=== PATIENT | male | born 1945 | race Caucasian/White ===

== ENCOUNTER → 2019-05-25 | Outpatient (CLI) | payer MEDICARE, OTHER ==
--- NOTE | 2019-05-25 22:07 | CONS ---
CONSULTATION DATE OF SERVICE: 05/25/2019 This 74-year-old gentleman has been evaluated in the Sleep Center for possible obstructive sleep apnea-hypopnea syndrome. HISTORY OF PRESENT ILLNESS/SLEEP-WAKE EVALUATION: The patient had a sleep study in 1993 which showed obstructive sleep apnea-hypopnea syndrome. After that he underwent UPPP and tonsillectomy, which was done by Dr. Brandt, and at that time he improved. His symptoms of snoring significantly decreased and he started to sleep better. Presently after about 25 years, he again developed more problems with snoring and awakenings from sleep. His sleep schedule is from 11 p.m. until around 7 a.m. Usually no problems with falling asleep. No TV in bedroom. He snores, according to his , and he wakes up from sleep three times with nocturia. In the morning he wakes up tired and he may take one nap during the day. After the nap he usually feels refreshed. No history of hypnagogic hallucinations, sleep paralysis, or cataplexy. [place] Sleepiness scale is 7. PAST MEDICAL HISTORY: Positive for hypertension, hyperlipidemia. PAST SURGICAL HISTORY: 1. UPPP. 2. Tonsillectomy. 3. Appendectomy. 4. Hernia repair. MEDICATIONS: 1. Lipitor. 2. Meclizine. 3. Benicar. 4. Vitamin D supplement. 5. . SOCIAL HISTORY: Negative for smoking. Alcohol occasional. FAMILY HISTORY: Emphysema, sleep apnea, snoring, cancer. REVIEW OF SYSTEMS: Snoring, awakenings from sleep with nocturia. PHYSICAL EXAMINATION: GENERAL: A pleasant gentleman without distress. VITAL SIGNS: BP 140/77, HR 71, RR 16, height 5 feet 9 inches, weight 212.8, body mass index 32.2, temperature 97.8, oxygen saturation on room air 95%. HEENT: PERRLA, EOMI. Evaluation of oropharynx showed tongue protrudes in midline. Low position of soft palate, Mallampati IV. No uvula. Restriction of nasal breathing. NECK: Supple. No JVD. Thyroid is not palpable. Wide neck; 18 inches in circumference. LUNGS: Clear to percussion and to auscultation. Good air exchange. No wheezing or rhonchi. HEART: S1, S2 regular. No murmurs, gallops, or rubs. ABDOMEN: Soft and nontender. Bowel sounds are present. No organomegaly appreciated. EXTREMITIES: No clubbing or cyanosis. BICYCLE DESIGNER: Awake, alert, and oriented X3. Cranial nerves 2 to 7 intact. There is no fasciculation or atrophy. noted. No focal deficits observed. IMPRESSION: 1. Obstructive sleep apnea-hypopnea syndrome diagnosed about 25 years ago. Presently the patient has loud snoring, multiple awakenings from sleep with nocturia, low position of soft palate, restriction of nasal breathing, wide neck: obstructive sleep apnea-hypopnea syndrome. 2. Status post uvulopalatopharyngoplasty and tonsillectomy 25 years ago. 3. History of hypertension. 4. Hyperlipidemia. 5. Status post appendectomy. 6. Status post hernia repair. PLAN: 1. Polysomnography for evaluation of patient's breathing during sleep. 2. CPAP/BiPAP titration if sleep study confirms obstructive sleep apnea-hypopnea syndrome. 3. Preferable position during sleep on the side. 4. No driving if patient feels any sleepiness. 5. I will see patient for follow-up visit to explain results of testing and following plan. Thank you very much for referring this patient for consultation. Sincerely, Saeid Arauz MD, PhD, FAASMB Diplomat of [place] Board of Medical Specialties F[place] Board of Internal Medicine Truck Hop of [facility] [place] MMDEANL / [place]: [id number] /
== END ==
LOC: SLEEP 14:37
PROVIDERS: ATTEND Internal Medicine
DX: I10 Essential (primary) hypertension (principal); E78.5 Hyperlipidemia, unspecified; Z90.49 Acquired absence of other specified parts of digestive tract; G47.33 Obstructive sleep apnea (adult) (pediatric); Z98.890 Other specified postprocedural states; Z79.899 Other long term (current) drug therapy
CPT/HCPCS: 99211

== ENCOUNTER → 2020-06-06 | Outpatient (CLI) | payer OTHER ==
--- NOTE | 2020-06-06 14:28 | SFUN ---
SLEEP CENTER FOLLOW UP NOTE DATE OF SERVICE: 06/06/2020 A 75-year-old gentleman who has been followed in the Sleep Center for treatment of obstructive sleep apnea-hypopnea syndrome. Recently, patient had a polysomnogram which showed obstructive sleep apnea and then patient had CPAP titration and subsequently he received his CPAP unit. Today is his first visit after he was started on treatment with CPAP. According to the patient, he feels better. His sleep is better and he feels better during the day. He is satisfied with his mask. He does not snore. At the same time, patient may feel some discomfort with his sinuses in the morning. [place] Sleepiness Scale today is 5. I checked patient CPAP unit, CPAP pressure is 6 cm of water. Usage is 30/30 nights. Average usage is 7.3 hours per night. Leak is 17 L/minute. Apnea-hypopnea index is 1.9, which is totally normal. MEDICATIONS: Lipitor, meclizine, Benicar, vitamin D3, fluticasone. PHYSICAL EXAM: Patient in no distress, BP 119/82, HR 80, RR 16, weight 209, temp 97.1. Oxygen saturation at room air 96%. OROPHARYNX: Extremely low position of soft palate. Mallampati 4. ABDOMEN: Obese. NECK: Supple, no JVD. Thyroid is not palpable. LUNGS: Clear to percussion and to auscultation. Good air exchange. No wheezing or rhonchi. HEART: S1, S2 regular. No murmurs, gallops, or rubs. EXTREMITIES: No clubbing or cyanosis. IS PROJECT MANAGER: Awake, alert, and oriented X3. Cranial nerves 2 to 7 intact. There is no fasciculation or atrophy. noted. No focal deficits observed. IMPRESSION: 1. Obstructive sleep apnea-hypopnea syndrome. Patient demonstrated great compliance with treatment, benefitting from treatment. 2. Hypertension. 3. Hyperlipidemia. 4. Status post UPPP and tonsillectomy 25 years ago. 5. Status post appendectomy. 6. Status post hernia repair. PLAN: 1. I reviewed the results of CPAP titration and decreased pressure of CPAP unit down to 4.6 cm of water. 2. Sleep hygiene with regular time in bed for at least 7-1/2 to 8 hours. 3. Precautions related to driving. No driving if feeling sleepiness. 4. I will maintain all necessary prescription for PAP supplies including mask, tube, filters. 5. Watching weight. 6. No driving if feeling sleepiness. 7. Follow-up visit in 3 months or earlier if patient has any problems. Thank you very much for allowing me to participate in the management of your patient. Sincerely, Saeid Arauz MD, PhD, FAASM Diplomat of [employer]ol[employer] Board of Medical Specialties Congolese Board of Internal Medicine Precision Instrument Maker And Repairer of [facility] [place] MMODL / [place]: [id number] /
== END | disposition home or self-care (01) ==
LOC: SLEEP 09:50
PROVIDERS: ATTEND Internal Medicine
DX: G47.33 Obstructive sleep apnea (adult) (pediatric) (principal); I10 Essential (primary) hypertension; E78.5 Hyperlipidemia, unspecified; Z99.89 Dependence on other enabling machines and devices; Z90.49 Acquired absence of other specified parts of digestive tract; Z98.890 Other specified postprocedural states

== ENCOUNTER → 2020-10-31 | Outpatient (CLI) | payer MEDICARE, OTHER ==
--- NOTE | 2020-10-31 15:58 | SFUN ---
SLEEP CENTER FOLLOW UP NOTE DATE OF SERVICE: 10/31/2020 This 75-year-old gentleman has been followed in Sleep Center for treatment of obstructive sleep apnea/hypopnea syndrome. During his previous visit, which was in June 2020, because of some feeling of discomfort in the sinuses, I decreased the pressure to 4.6 cm of water. The patient continues to use his machine every night for the whole night. He just returned from [place]. In [place] in September he was diagnosed with COVID-19; his symptoms were mostly only headaches at that time. He still has a slight headache in the morning now. [place] Sleepiness Scale is 9. I checked his CPAP unit. CPAP pressure is 4.6 cm of water, which is really minimal pressure. Usage is 30/30 nights for more than 4 hours; very good compliance. Leak is 11 L/minute, which is in normal range. Apnea-hypopnea index is only 1.4, which is absolutely perfect. MEDICATIONS: 1. Lipitor 20 mg once a day. 2. Meclizine 12.5 mg on p.r.n. basis. 3. Benicar 20 mg once a day. 4. Multivitamins. 5. Fluticasone spray. 6. Vitamin D3 once a day. PHYSICAL EXAMINATION: GENERAL: A pleasant patient in no distress. VITAL SIGNS: BP 118/78, HR 70, RR 18, height 5 feet 8 inches, weight 213.2, temperature 97.9, oxygen saturation at room air 95%. HEENT: PERRLA, EOMI. Evaluation of oropharynx showed tongue protrudes midline. Extremely low position of soft palate. Mallampati IV. NECK: Supple. No JVD. Thyroid is not palpable. LUNGS: Clear to percussion and to auscultation. Good air exchange. No wheezing or rhonchi. HEART: S1, S2 regular. No murmurs, gallops or rubs. ABDOMEN: Soft and nontender. Bowel sounds are present. No organomegaly appreciated. EXTREMITIES: No clubbing or cyanosis. PICKING CREW SUPERVISOR: Awake, alert, and oriented X3. Cranial nerves 2 to 7 intact. There is no fasciculation or atrophy. noted. No focal deficits observed. IMPRESSION: 1. Obstructive sleep apnea-hypopnea syndrome. Patient demonstrated 100% compliance with treatment, benefitting from treatment. Normal apnea-hypopnea index with very low CPAP pressure of 4.6 cm of water. 2. Episodes of possibly sinus headaches even after pressure was decreased significantly. 3. Status post COVID-19 in September of 2020 with possibly post-COVID neurological symptoms. 4. Mild obesity; body mass index 32.3. 5. Hyperlipidemia. 6. Status post UPPP. 7. Status post appendectomy. 8. Status post hernia repair. PLAN: 1. I referred the patient for evaluation by Ear, Nose and Throat physician because of possible sinus problems. 2. Patient will continue to use CPAP equipment every night for the whole night. 3. I asked the patient to do several nights without CPAP to check if his symptoms change, although, as I described above, pressure in his CPAP unit at the present time is in very low range of only 4.6 cm of water. 4. Watching and losing weight. 5. No driving if feeling sleepiness. 6. Follow-up visit in 3-4 months. Thank you very much for allowing me to participate in the management of your patient. Sincerely, Saeid Arauz MD, PhD, FAASM Diplomat of [employer] Board of Medical Specialties Nigerian Board of Internal Medicine Port Engineer of [facility] [place] MMODL / IJN: [id number] /
== END ==
LOC: SLEEP 11:35
PROVIDERS: ATTEND Internal Medicine
DX: G47.33 Obstructive sleep apnea (adult) (pediatric) (principal); E66.9 Obesity, unspecified; E78.5 Hyperlipidemia, unspecified; Z68.32 Body mass index [BMI] 32.0-32.9, adult; Z86.16 Personal history of COVID-19; Z98.890 Other specified postprocedural states; Z90.49 Acquired absence of other specified parts of digestive tract; Z90.89 Acquired absence of other organs; Z79.899 Other long term (current) drug therapy

== ENCOUNTER → 2021-02-20 | Outpatient (CLI) | payer MEDICARE, OTHER ==
--- NOTE | 2021-02-20 22:29 | SFUN ---
SLEEP CENTER FOLLOW UP NOTE DATE OF SERVICE: 02/20/2021 This 75-year-old gentleman has been followed in Sleep Center for treatment of obstructive sleep apnea-hypopnea syndrome. The patient continues to use his CPAP equipment every night. During his previous visit he had episodes of headaches and sinus discomfort, but the pressure in the machine was in very low range. I referred the patient to Ear, Nose and Throat physician to check up. He was checked. CT scan, according to the patient, did not show significant abnormalities, and now no headaches or sinus issues. The patient had COVID in September of 2020 and he had headaches at that time. About 2 months after that, the headaches practically disappeared; they were possibly secondary to COVID-19. I checked his CPAP unit. Pressure is 4.6 cm of water, which is in very low range. Usage is 100% of nights, average 7.2 hours per night. Leak is 11 L/minute, which is normal. Apnea-hypopnea index is 3.7, which is in acceptable range. [place] Sleepiness Scale today is 7. MEDICATIONS: 1. Lipitor 20 mg once a day. 2. Meclizine 12.5 mg as needed. 3. Benicar 20 mg once a day. 4. Fluticasone 50 mcg spray nightly. 5. Multivitamins. 6. Vitamin D3 supplement. PHYSICAL EXAMINATION: GENERAL: Pleasant patient in no distress. VITAL SIGNS: BP 140/97, HR 76, RR 15, height 5 feet 8 inches, weight 205, body mass index 31.1, temperature 97.6, oxygen saturation at room air 97%. HEENT: PERRLA, EOMI, evaluation of oropharynx showed tongue protrudes midline. Extremely low position of soft palate. Mallampati IV. NECK: Supple, no JVD. Thyroid is not palpable. LUNGS: Clear to percussion and to auscultation. Good air exchange. No wheezing or rhonchi. HEART: S1, S2 regular. No murmurs, gallops, or rubs. ABDOMEN: Soft and nontender. Bowel sounds are present. No organomegaly appreciated. EXTREMITIES: No clubbing or cyanosis. SPREADER OPERATOR AUTOMATIC: Awake, alert, and oriented X3. Cranial nerves 2 to 7 intact. There is no fasciculation or atrophy. noted. No focal deficits observed. IMPRESSION: 1. Obstructive sleep apnea-hypopnea syndrome. Patient demonstrated great compliance with treatment, benefitting from treatment. 2. Mild obesity. BMI 31.1. 3. Status post COVID-19 in September of 2020. 4. Hypertension. 5. Hyperlipidemia. 6. Status post UPPP and tonsillectomy 25 years ago. 7. Status post appendectomy. 8. Status post hernia repair. 9. Status post left knee arthroplasty in January of 2021. PLAN: 1. Patient will continue to use PAP equipment every night for the whole night. 2. Sleep hygiene with regular time in bed for at least 7-1/2 to 8 hours. 3. Precautions related to driving. No driving if feeling sleepiness. 4. I will maintain all necessary prescription for PAP supplies including mask, tube, filters. 5. Watching weight. 6. Follow-up visit in 6 months or earlier if patient has any problems. Thank you very much for allowing me to participate in the management of your patient. Sincerely, Saeid Arauz MD, PhD, FAASM Diplomat of [place] Board of Medical Specialties Sleep Medicine Board of [place] Board of Internal Medicine Property Inspector of [facility] [place] MMODL / [place]: [id number] /
== END ==
LOC: SLEEP 14:51
PROVIDERS: ATTEND Internal Medicine
DX: G47.33 Obstructive sleep apnea (adult) (pediatric) (principal); E66.9 Obesity, unspecified; I10 Essential (primary) hypertension; E78.5 Hyperlipidemia, unspecified; Z90.09 Acquired absence of other part of head and neck; Z68.31 Body mass index [BMI] 31.0-31.9, adult; Z99.89 Dependence on other enabling machines and devices; Z79.899 Other long term (current) drug therapy; Z90.49 Acquired absence of other specified parts of digestive tract; Z98.890 Other specified postprocedural states; Z96.652 Presence of left artificial knee joint; Z86.16 Personal history of COVID-19

== ENCOUNTER → 2021-10-29 | Outpatient (CLI) | payer MEDICARE, OTHER ==
--- NOTE | 2021-10-29 19:55 | SFUN ---
SLEEP CENTER FOLLOW UP NOTE DATE OF SERVICE: 10/29/2021 This 76-year-old gentleman has been followed in Sleep Center for treatment of obstructive sleep apnea-hypopnea syndrome. The patient continues to use his CPAP equipment every night. He developed some problems with irritation of his nose from the mask in internal part of the nose. He is using a nasal pillow mask. [place] Sleepiness Scale today is 7, which is normal. I checked his CPAP unit. Pressure is 4.6 cm of water. Usage 29/30 nights more than 4 hours, average 7.4 hours per night, which is good compliance. Leak is 12 L/minute, which is normal range. Apnea-hypopnea index is 2.0, which is normal; better than during the previous visit. MEDICATIONS: 1. Lipitor 20 mg once a day. 2. Pantoprazole 40 mg twice a day. 3. Meclizine 12.5 mg as needed. 4. Benicar 20 mg once a day. 5. Multivitamins. PHYSICAL EXAMINATION: GENERAL: Pleasant patient in no distress. VITAL SIGNS: BP 130/82, HR 66, RR 16, temperature 97.1. HEENT: PERRLA, EOMI, evaluation of oropharynx showed tongue protrudes midline. Extremely low position of soft palate; Mallampati IV. Irritation inside of left nostril. NECK: Supple, no JVD. Thyroid is not palpable. LUNGS: Clear to percussion and to auscultation. Good air exchange. No wheezing or rhonchi. HEART: S1, S2 regular. No murmurs, gallops, or rubs. ABDOMEN: Soft and nontender. Bowel sounds are present. No organomegaly appreciated. EXTREMITIES: No clubbing or cyanosis. DYNAMICS AX DEVELOPER: Awake, alert, and oriented X3. Cranial nerves 2 to 7 intact. There is no fasciculation or atrophy. noted. No focal deficits observed. IMPRESSION: 1. Obstructive sleep apnea-hypopnea syndrome. Patient demonstrated great compliance with treatment. Normal respiration on CPAP. 2. Some irritation from nasal pillow mask inside of the nostril. 3. Mild obesity. 4. Status post COVID-19 in September 2020. 5. Hypertension. 6. Hyperlipidemia. 7. Status post uvulopalatopharyngoplasty and tonsillectomy 25 years ago. 8. Status post appendectomy. 9. Status post hernia repair. 10.Status post left knee arthroplasty in January of 2021. PLAN: 1. We provided the patient with a nasal mask which does not have any part which goes inside of the nose. 2. Patient will continue to use PAP equipment every night for the whole night. 3. Sleep hygiene with regular time in bed for at least 7-1/2 to 8 hours. 4. Precautions related to driving. No driving if feeling sleepiness. 5. I will maintain all necessary prescription for PAP supplies including mask, tube, filters. 6. Watching weight. 7. Follow-up visit in 6 months or earlier if patient has any problems. Thank you very much for allowing me to participate in the management of your patient. Sincerely, Saeid Arauz MD, PhD, FAASM Diplomat of Somali Board of Medical Specialties Sleep Medicine Board of Somali Board of Internal Medicine Configuration Management Analyst of [facility] [place] MMODL / [place]: [id number] /
== END ==
LOC: SLEEP 12:57
PROVIDERS: ATTEND Internal Medicine
DX: G47.33 Obstructive sleep apnea (adult) (pediatric) (principal); Z99.89 Dependence on other enabling machines and devices; E66.9 Obesity, unspecified; Z86.16 Personal history of COVID-19; I10 Essential (primary) hypertension; E78.5 Hyperlipidemia, unspecified; Z98.890 Other specified postprocedural states; Z90.09 Acquired absence of other part of head and neck; Z90.49 Acquired absence of other specified parts of digestive tract; Z96.652 Presence of left artificial knee joint

== ENCOUNTER → 2022-05-13 | Outpatient (CLI) | payer MEDICARE, OTHER ==
--- NOTE | 2022-05-13 14:29 | P.PN ---
Subjective DATE: 05/13/2022 FOLLOW UP VISIT. Patient with obstructive sleep apnea hypopnea syndrome return to sleep center for follow-up visit. Information from previous visit have been reviewed. Patient is using PAP equipment every night for the whole night, getting PAP supplies in time. The patient does not have significant problems with the mask, PAP unit. Recently patient started to experience dryness in his mouth. [place] sleepiness scale is 7, which is normal. I checked PAP unit. PAP unit pressure 4.6 cm H2O. Usage is 100 % for more then 4 hours, average 6.9 hours per night. Leak is 14 l/m, which is in acceptable range. Apnea Hypopnea Index is 1.7, which is normal. MEDICATIONS:1. Pantoprazole 40 mg twice a day 2. Lipitor 20 mg once a day 3. Meclizine 12.5 mg as needed 4. Benicar 20 mg once a day 5. Multivitamins During physical exam: GENERAL: A pleasant patient without any distress. VITAL SIGNS: BP 103/67, HR 72, RR 16 , weight 204, body mass index 31.4, temperature 98.3, oxygen saturation at room air 96 % . HEENT: PERRLA, EOMI.low position of soft palate, Mallapati 4 . NECK: Supple. No JVD. LUNGS: Clear to percussion and to auscultation. Good air exchange. No wheezing or rhonchi. HEART: S1, S2 regular. ABDOMEN: Soft and nontender. Slightly obese EXTREMITIES: No clubbing or cyanosis. COMMUNITY HEALTH DIRECTOR: Awake, alert, and oriented x3. No focal deficit. Impressions: 1. Obstructive sleep apnea-hypopnea syndrome. Patient demonstrated great compliance with treatment, benefiting from treatment. 2. Mild obesity. 3. Hypertension. 4. Status post coronary 19 in 2020. 5. Hyperlipidemia. 6. Status post UPPP and tonsillectomy 25 years ago. 7. Status post appendectomy. 8. Status post hernia repair. 9. Status post left knee arthroplasty in January 2021. Plan: 1. Continue using PAP equipment every night for the whole night. 2. To change air filter at least 1-2 times per month. 3. PAP unit should stay lower then position of the head. 4. I teach patient how to adjust humidity in humidifier and temperature in heated tube. Advised patient to remove all remaining water from humidifier canister daily and make it dry after each usage. Refill canister with fresh distilled water before each usage. 5. Sleep hygiene with regular time in bed for at least 8 hours. 6. Precautions related to driving. No driving if feel any sleepiness. 7. I will maintain prescription for PAP supplies including mask, tube, filters. 8. Follow up visit in 6 months or earlier if patient has any problems. 9. Watching weight. Thank you very much for allowing me to participate in the management of your patient. Saeid Arauz MD, PhD, FAASM. Diplomat of [place] Board of Sleep Medicine, Sleep Medicine Board by [place] Board of Internal Medicine Loader Helper of [facility] [place]
== END ==
LOC: SLEEP 13:07
PROVIDERS: ATTEND Internal Medicine
DX: G47.33 Obstructive sleep apnea (adult) (pediatric) (principal); E66.9 Obesity, unspecified; I10 Essential (primary) hypertension; E78.5 Hyperlipidemia, unspecified; Z95.5 Presence of coronary angioplasty implant and graft; Z48.815 Encounter for surgical aftercare following surgery on the digestive system; Z96.652 Presence of left artificial knee joint
CPT/HCPCS: 99212

== ENCOUNTER → 2022-11-18 | Outpatient (CLI) | payer MEDICARE, OTHER ==
--- NOTE | 2022-11-18 11:22 | P.PN ---
Subjective DATE: 11/18/2022 FOLLOW UP VISIT. Patient with obstructive sleep apnea hypopnea syndrome return to sleep center for follow-up visit. Information from previous visit have been reviewed. Patient is using PAP equipment every night for the whole night, getting PAP supplies in time. The patient does not have significant problems with the mask, PAP unit and humidification. [place] sleepiness scale is 9, which is borderline. I checked information from PAP unit. PAP unit pressure 4.6 cm H2O. Usage is 100 % for more then 4 hours, average 7.2 hours per night. Leak is 8 l/m, which is in acceptable range. Apnea Hypopnea Index is 2.3, which is normal. MEDICATIONS:1. Lipitor 20 mg once a day 2. Meclizine 12.5 mg as needed 3. Benicar 20 mg once a day 4. Pantoprazole 40 mg twice a day 5. Singulair During physical exam: GENERAL: A pleasant patient without any distress. VITAL SIGNS: BP 125/77, HR 78, RR 12, weight 216.6, temperature 97.2, oxygen saturation at room air 95 % . HEENT: PERRLA, EOMI.low position of soft palate, Mallapati 4 . NECK: Supple. No JVD. LUNGS: Clear to percussion and to auscultation. Good air exchange. No wheezing or rhonchi. HEART: S1, S2 regular. ABDOMEN: Soft and nontender.[] EXTREMITIES: No clubbing or cyanosis. OIL WELL ENGINEER: Awake, alert, and oriented x3. No focal deficit. Impressions: 1. Obstructive sleep apnea-hypopnea syndrome. Patient demonstrated great com pliance with treatment, benefiting from treatment. 2. Mild obesity body mass index 33.8, patient increased his weight on 12 pounds comparing with previous visit. 3. Hypertension. 4. Hyperlipidemia. 5. Status post UPPP and tonsillectomy 25 years ago. 6. Status post left knee arthroplasty in January 2021. 7. Status post Covid-19 in 2020. Plan: 1. Continue using PAP equipment every night for the whole night. 2. To change air filter at least 1-2 times per month. 3. PAP unit should stay lower then position of the head. 4. Advised patient to remove all remaining water from humidifier canister daily and make it dry after each usage. Refill canister with fresh distilled water before each usage. 5. Sleep hygiene with regular time in bed for at least 8 hours. 6. Precautions related to driving. No driving if feel any sleepiness. 7. I will maintain prescription for PAP supplies including mask, tube, filters. 8. Watching and losing weight. 9.Follow up visit in 6 months or earlier if patient has any problems. Thank you very much for allowing me to participate in the management of your patient. Saeid Arauz MD, PhD, FAASM. Diplomat of [place] Island[place] Board of Sleep Medicine, Sleep Medicine Board by [place] Board of Internal Medicine Crewman Main Battle Tank of [facility] [place]
== END ==
LOC: SLEEP 10:47
PROVIDERS: ATTEND Internal Medicine
DX: G47.33 Obstructive sleep apnea (adult) (pediatric) (principal); I10 Essential (primary) hypertension; E66.9 Obesity, unspecified; Z68.33 Body mass index [BMI] 33.0-33.9, adult; E78.5 Hyperlipidemia, unspecified; Z98.890 Other specified postprocedural states; Z86.16 Personal history of COVID-19; Z96.652 Presence of left artificial knee joint; Z99.89 Dependence on other enabling machines and devices
CPT/HCPCS: 99212

== ENCOUNTER → 2023-06-02 | Outpatient (CLI) | payer MEDICARE, OTHER ==
--- NOTE | 2023-06-02 11:50 | P.PN ---
Subjective DATE: 06/02/2023 FOLLOW UP VISIT. Patient with obstructive sleep apnea hypopnea syndrome return to sleep center for follow-up visit. Information from previous visit have been reviewed. Patient is using PAP equipment every night for the whole night, getting PAP supplies in time. The patient does not have significant problems with the mask, PAP unit and humidification. [place] sleepiness scale is 7, which is normal. I checked information from PAP unit and discussed it with patient in details. PAP unit pressure 4.6 cm H2O. Usage is 95 % for more then 4 hours, average 6.6 hours per night. Leak is 11 l/m, which is in acceptable range. Apnea Hypopnea Index is 2.7, which is normal. MEDICATIONS:1. Lipitor 20 mg once a day 2. Meclizine 12.5 mg as needed 3. Benicar 20 mg once a day 4. Norvasc 2.5 mg once a day 5. Pantoprazole 40 mg twice a day 6. Flomax 0.4 mg once a day During physical exam: GENERAL: A pleasant patient without any distress. VITAL SIGNS: BP 133/85, HR 73, RR 16 , weight 217.6, temperature 97.3, oxygen saturation at room air 95 % . HEENT: PERRLA, EOMI.low position of soft palate, Mallapati 4 . NECK: Supple. No JVD. LUNGS: Clear to percussion and to auscultation. Good air exchange. No wheezing or rhonchi. HEART: S1, S2 regular. ABDOMEN: Soft and nontender. Slightly obese EXTREMITIES: No clubbing or cyanosis. POLLUTION CONTROL CHEMIST: Awake, alert, and oriented x3. No focal deficit. Impressions: 1. Obstructive sleep apnea-hypopnea syndrome. Patient demonstrated great compliance with treatment, benefiting from treatment. 2. Mild obesity. 3. Hypertension. 4. Hyperlipidemia. 5. Status post left knee arthroplasty in 2020. 6. Status post COVID-19 in 2020. 7. Status post UPPP and tonsillectomy 25 years ago. Plan: 1. Continue using PAP equipment every night for the whole night. 2. To change air filter at least 1-2 times per month. 3. PAP unit should stay lower then position of the head. 4. Advised patient to remove all remaining water from humidifier canister daily and make it dry after each usage. Refill canister with fresh distilled water before each usage. 5. Sleep hygiene with regular time in bed for at least 8 hours. 6. Precautions related to driving. No driving if feel any sleepiness. 7. I will maintain prescription for PAP supplies including mask, tube, filters. 8. Follow up visit in 6 months or earlier if patient has any problems. 9. Watching and losing weight. Thank you very much for allowing me to participate in the management of your patient. Saeid Arauz MD, PhD, FAASM. Diplomat of [place] Board of Sleep Medicine, Sleep Medicine Board by [place] Board of Internal Medicine Automobile Brakes Bonder of [facility] [place]
== END ==
LOC: 3 N SLEEP 11:14
PROVIDERS: ATTEND Internal Medicine
DX: G47.33 Obstructive sleep apnea (adult) (pediatric) (principal); E66.9 Obesity, unspecified; I10 Essential (primary) hypertension; E78.5 Hyperlipidemia, unspecified; Z79.899 Other long term (current) drug therapy; Z96.652 Presence of left artificial knee joint; Z98.890 Other specified postprocedural states; Z90.89 Acquired absence of other organs; Z99.89 Dependence on other enabling machines and devices; Z86.16 Personal history of COVID-19
CPT/HCPCS: 99212

== ENCOUNTER → 2024-01-12 | Outpatient (CLI) | payer MEDICARE, OTHER ==
[2024-01-12 10:32] VITALS: BP 119/70; PULSE 66; RESP 16; TEMP 97.9
--- NOTE | 2024-01-12 11:11 | P.PROGSL ---
Subjective DATE: 01/12/2024. FOLLOW UP VISIT. Patient with obstructive sleep apnea hypopnea syndrome return to sleep center for follow-up visit. Information from previous visit have been reviewed. Patient is using PAP equipment every night for the whole night, getting PAP supplies in time. The patient does not have significant problems with the mask, PAP unit and humidification. [place] sleepiness scale is 7, which is normal. I checked information from PAP unit. PAP unit pressure 4.6 cm H2O. Usage is 100% for more then 4 hours, average 7 hours per night. Leak is 10 l/m, which is in acceptable range. Apnea Hypopnea Index is 1.2, which is normal. MEDICATIONS: Please see below During physical exam: GENERAL: A pleasant patient without any distress. VITAL SIGNS: Please see below, weight 210 pounds, BMI 32.4. HEENT: PERRLA, EOMI.low position of soft palate, Mallapati 4. NECK: Supple. No JVD. LUNGS: Clear to percussion and to auscultation. Good air exchange. No wheezing or rhonchi. HEART: S1, S2 regular. ABDOMEN: Soft and nontender.[] EXTREMITIES: No clubbing or cyanosis. BAGGAGE AND MAIL AGENT: Awake, alert, and oriented x3. No focal deficit. Impressions: 1. Obstructive sleep apnea-hypopnea syndrome. Patient demonstrated great compliance with treatment, benefiting from treatment. 2. Hypertension. 3. Mild obesity, BMI 32.4. 4. Hyperlipidemia. 5. Status post left knee arthroplasty in 2020. 6. Status post UPPP and tonsillectomy 25 years ago. Plan: 1. Continue using PAP equipment every night for the whole night. 2. To change air filter at least 1-2 times per month. 3. PAP unit should stay lower then position of the head. 4. Advised patient to remove all remaining water from humidifier canister daily and make it dry after each usage. Refill canister with fresh distilled water before each usage. 5. Sleep hygiene with regular time in bed for at least 8 hours. 6. Precautions related to driving. No driving if feel any sleepiness. 7. I will maintain prescription for PAP supplies including mask, tube, filters. 8. Follow up visit in 6 months or earlier if patient has any problems. 9. Watching weight. Thank you very much for allowing me to participate in the management of your patient. Saeid Arauz MD, PhD, FAASM. Diplomat of [place] [employer], Sleep Medicine Board by [place] [employer] Technician [facility] [place] Objective - Vital Signs Vital Signs: Vital Signs Temp 97.9 F 01/12/24 10:31 Pulse 66 01/12/24 10:31 Resp 16 01/12/24 10:31 BP 119/70 01/12/24 10:31 Pulse Ox 94 L 01/12/24 10:31 FiO2 Home Medications: Home Medications Medication Instructions Recorded Confirmed Type Atorvastatin [Lipitor] 20 mg PO DAILY 01/12/24 01/12/24 History Cholecalciferol [Vitamin D3 (25 PO ONCE 01/12/24 History Mcg = 1000 Iu)] Meclizine [Antivert] 12.5 mg PO 01/12/24 History Multivitamin [Multivitamins Adult 1 each PO 01/12/24 History Gummies] Olmesartan [Benicar] 20 mg PO DAILY 01/12/24 01/12/24 History Pantoprazole [Protonix] 40 mg PO DAILY 01/12/24 01/12/24 History Propylene Glycol/Peg 400 [Systane 1 drop BOTH EYES 01/12/24 History Ultra 0.4-0.3% Eye Drp] Tamsulosin [Flomax] 0.4 mg PO DAILY 01/12/24 01/12/24 History
== END ==
LOC: 3 N SLEEP 10:07
PROVIDERS: ATTEND Internal Medicine
DX: G47.33 Obstructive sleep apnea (adult) (pediatric) (principal); I10 Essential (primary) hypertension; E66.9 Obesity, unspecified; E78.5 Hyperlipidemia, unspecified; Z96.652 Presence of left artificial knee joint; Z98.890 Other specified postprocedural states; Z90.89 Acquired absence of other organs; Z68.32 Body mass index [BMI] 32.0-32.9, adult; Z99.89 Dependence on other enabling machines and devices; Z88.0 Allergy status to penicillin; Z79.899 Other long term (current) drug therapy
CPT/HCPCS: 99212

== ENCOUNTER → 2024-11-15 | Outpatient (CLI) | payer MEDICARE, OTHER ==
[2024-11-15 10:47] VITALS: BP 121/73; PULSE 77; RESP 16; TEMP 98.3
--- NOTE | 2024-11-15 12:03 | P.PROGSL ---
Subjective DATE: 11/15/2024 FOLLOW UP VISIT. Patient with obstructive sleep apnea hypopnea syndrome return to sleep center for follow-up visit. Information from previous visit have been reviewed. Patient is using PAP equipment every night for the whole night, getting PAP supplies in time. The patient does not have significant problems with the mask, PAP unit and humidification. [place] sleepiness scale is 5, which is normal. I checked information from PAP unit. PAP unit pressure 4.6 cm H2O. Usage is 100% for more then 4 hours, average 7.7 hours per night. Leak is 10 l/m, which is in acceptable range. Apnea Hypopnea Index is 0.7, which is normal. MEDICATIONS have been reviewed, please see below. During physical exam: GENERAL: A pleasant patient without any distress. VITAL SIGNS: Please see below, weight is 219.4 lbs. HEENT: PERRLA, EOMI.low position of soft palate, Mallapati 4 . NECK: Supple. No JVD. LUNGS: Clear to percussion and to auscultation. Good air exchange. No wheezing or rhonchi. HEART: S1, S2 regular. ABDOMEN: Soft and nontender.[] EXTREMITIES: No clubbing or cyanosis. MYCOLOGY TEACHER: Awake, alert, and oriented x3. No focal deficit. Impressions: 1. Obstructive sleep apnea-hypopnea syndrome. Patient demonstrated great compliance with treatment, benefiting from treatment. 2. Hypertension. 3. Mild obesity by BMI 34.0. 4. Hyperlipidemia. 5. Status post left knee arthroplasty in 2020. 6. Status post UPPP and tonsillectomy in the past. Plan: 1. Continue using PAP equipment every night for the whole night. 2. Sleep hygiene with regular time in bed for at least 7.5-8 hours 3. PAP unit should stay lower then position of the head. 4. Advised patient to remove all remaining water from humidifier canister daily and make it dry after each usage. Refill canister with fresh distilled water before each usage. 5. Watching weight. 6. Precautions related to driving. No driving if feel any sleepiness. 7. I will maintain prescription for PAP supplies including mask, tube, filters. 8. Follow up visit in 8 months or earlier if patient has any problems. Thank you very much for allowing me to participate in the management of your patient. Saeid Arauz MD, PhD, FAASM. Diplomat of [place] [employer], Sleep Medicine Board by [place] [employer] Culinary Chef [facility] [place] Objective - Vital Signs Vital Signs: Vital Signs Temp 98.3 F 11/15/24 10:47 Pulse 77 11/15/24 10:47 Resp 16 11/15/24 10:47 BP 121/73 11/15/24 10:47 Pulse Ox 95 11/15/24 10:47 FiO2 Intake & Output 11/14/24 11/15/24 11/15/24 18:59 06:59 18:59 Weight 99.45 kg Home Medications: Home Medications Medication Instructions Recorded Confirmed Type Atorvastatin [Lipitor] 20 mg PO DAILY 01/12/24 01/12/24 History Cholecalciferol [Vitamin D3 (25 PO ONCE 01/12/24 History Mcg = 1000 Iu)] Meclizine [Antivert] 12.5 mg PO 01/12/24 History Multivitamin [Multivitamins Adult 1 each PO 01/12/24 History Gummies] Olmesartan [Benicar] 20 mg PO DAILY 01/12/24 01/12/24 History Pantoprazole [Protonix] 40 mg PO DAILY 01/12/24 01/12/24 History Propylene Glycol/Peg 400 [Systane 1 drop BOTH EYES 01/12/24 History Ultra 0.4-0.3% Eye Drp] Tamsulosin [Flomax] 0.4 mg PO DAILY 01/12/24 01/12/24 History
== END ==
LOC: 3 N SLEEP 10:30
PROVIDERS: ATTEND Internal Medicine
DX: G47.33 Obstructive sleep apnea (adult) (pediatric) (principal); I10 Essential (primary) hypertension; E66.9 Obesity, unspecified; E78.5 Hyperlipidemia, unspecified; Z98.890 Other specified postprocedural states; Z68.34 Body mass index [BMI] 34.0-34.9, adult; Z88.0 Allergy status to penicillin; Z99.89 Dependence on other enabling machines and devices
CPT/HCPCS: 99212